=== PATIENT | male | born 1965 | race Caucasian/White ===

== ENCOUNTER 2019-12-18 19:12 | Emergency (ER) | payer OTHER, SELFPAY ==
--- NOTE | ~2019-12-18 | XR_ITS ---
EXAMINATION: XR ankle RT min 3V, XR tibia fibula RT 2V EXAM DATE: 12/18/2019 19:45 (accession [id number]), 12/18/2019 19:46 (accession [id number]) INDICATION: Initial encounter following injury, with pain of the right ankle, tibia/fibula. TECHNIQUE: Right ankle frontal, lateral and oblique projections obtained and reviewed. Frontal and l ateral projections right tibia and fibula. There are no prior studies for comparison. FINDINGS: There is acute closed posttraumatic oblique fracture through the proximal 3rd of the right fibular shaft, with about 3 mm displacement, no angulation. There is overlying soft tissue swelling. The tibia is unremarkable. The ankle mortise appears intact. IMPRESSION: Acute right fibular proximal diaphyseal fracture. Reviewed, dictated and finalized at location A. IMPRESSION: Acute right fibular proximal diaphyseal fracture.
[2019-12-18 19:15] VITALS: BP 162/100; PULSE 116; RESP 20; TEMP 37.8; O2SAT 96
--- NOTE | 2019-12-18 19:17 | ED.LOWEXIN ---
HPI - Extremity Injury (Lower) General Chief Complaint: Extremity Injury, Lower Stated Complaint: right ankle injured Time Seen by Provider: 12/18/19 19:17 Source: patient and RN notes reviewed History of Present Illness HPI Narrative: Patient is a 54-year-old male who presents the urgent care with complaints of right ankle pain and swelling. Patient states that the pain shoots up the right leg with any weightbearing pressure. Patient did ambulate into the facility with the use of crutches. States it happened approximately 2 hours ago when he was picking up his yard and flip-flops. Patient has not done anything for his pain prior to arrival. No other acute complaints or injuries. No acute distress noted. Patient aware of the plan of care. Related Data Allergies Allergy/AdvReac Type Severity Reaction Status Date / Time prednisone AdvReac Unknown Itching Verified 12/18/19 19:25 Review of Systems Review of Systems: Narrative: CONSTITUTIONAL: Denies fever, chills, or sweats. EYES: Denies visual changes, redness, or discharge. ENT: Denies rhinorrhea, congestion, sore throat, or otalgia. CARDIOVASCULAR: Denies chest pain, palpitations, or edema. RESPIRATORY: Denies cough or dyspnea. GASTROINTESTINAL: Denies abdominal pain, nausea, vomiting, or diarrhea. GENITOURINARY: Denies dysuria or hematuria. SKIN: Denies rash or itching. MUSCULOSKELETAL: Reports of right ankle pain and swelling NEUROLOGIC: Denies headache, numbness, or weakness. All other systems reviewed are negative, except as documented in HPI. PMFSH Comments At the time of my signature, I reviewed and agree with the nursing past medical, surgical, social, and family history. There is no relevant family history pertinent to the patient complaint. Exam Narrative: Exam Narrative: GENERAL: This is a well-nourished, well-developed patient, in no apparent distress. HEAD: normocephalic, atraumatic. EYES: PERRL. Sclera clear/white. Vision is grossly intact. EARS: External ears normal NOSE: External nose normal with no obvious nasal discharge, nares without redness, no rhinorrhea. THROAT: Mucous membranes moist NECK: Neck supple SKIN: warm, intact with no suspicious lesions or rash, good texture and turgor. NEURO: awake, alert, and oriented to person, place and time. There were no obvious focal neurologic abnormalities. EXTREMITIES: Positive strong right pedal pulse with capillary refill less than 2 seconds. Notable edema and ecchymosis noted to the lateral aspect of the right malleolus with pain and tenderness. Range of motion not tested due to pain. Exacerbated pain, which radiates to the right lower leg, when weightbearing. Course Vital Signs Vital signs: Vital Signs Temperature 100.0 F H 12/18/19 19:15 Pulse Rate 116 H 12/18/19 19:15 Respiratory Rate 12/18/19 19:15 Blood Pressure 162/100 H 12/18/19 19:15 Pulse Oximetry 96 12/18/19 19:15 Temperature 100.0 F H 12/18/19 19:15 Pulse Rate 116 H 12/18/19 19:15 Respiratory Rate 12/18/19 19:15 Blood Pressure 162/100 H 12/18/19 19:15 Pulse Oximetry 96 12/18/19 19:15 Reviewed-patient is informed that they may have pre-hypertension or hypertension based on a blood pressure reading in the department. I recommend the patient call the primary care provider listed on their discharge instructions or a physician of their choice this week to arrange follow-up for further evaluation of possible pre-hypertension or hypertension. Procedures Orthopedic Splinting/Casting Injury #1: Side: right Lower Extremity Injury Location: lower leg OCL: long leg Pre-Procedure Neuro Vascular Exam: normal Post-Procedure Neuro Vascular Exam: normal Additional Comments: Posterior long leg applied to the right lower extremity for fibular fracture. Patient tolerated well. Procedure successful. Pre-and post neurovascular exam within normal limits. Splint placed by adelfo/RN. Patient
== END 2019-12-18 20:15 | disposition home or self-care (01) ==
PROVIDERS: Emergency Provider Nurse Practitioner Family
DX: S93.401A Sprain of unspecified ligament of right ankle, initial encounter (principal); X58.XXXA Exposure to other specified factors, initial encounter; S82.831A Other fracture of upper and lower end of right fibula, initial encounter for closed fracture
CPT/HCPCS: 29505; 73590; 73610; 99214; G0463

== ENCOUNTER 2023-10-20 08:16 | Emergency (ER) | payer OTHER, SELFPAY ==
[2023-10-20 08:23] VITALS: BP 120/77; PULSE 78; RESP 16; TEMP 37.7; O2SAT 97
--- NOTE | 2023-10-20 08:29 | ED.MALEGU ---
HPI - Male Genitourinary General Chief complaint: Urogenital-Male Stated complaint: Urinary Problem/Back Pain Time Seen by Provider: 10/20/23 08:29 Source: patient Mode of arrival: ambulatory Limitations: no limitations History of Present Illness HPI Narrative: 58-year-old male presents with complaint burning urination, back pain, fatigue for 4 days. Patient reports takes him longer than usual to start urine stream. Afebrile. Patient reports chills last night. All systems reviewed and negative except as noted above. Related Data Home Medications Medication Instructions Recorded Confirmed amlodipine 5 mg tablet mg 10/20/23 Allergies Allergy/AdvReac Type Severity Reaction Status Date / Time prednisone AdvReac Unknown Itching Verified 12/18/19 19:25 Review of Systems Review of Systems: CONSTITUTIONAL: Denies fever, chills, or sweats. EYES: Denies visual changes, redness, or discharge. ENT: Denies rhinorrhea, congestion, sore throat, or otalgia. CARDIOVASCULAR: Denies chest pain, palpitations, or edema. RESPIRATORY: Denies cough or dyspnea. GASTROINTESTINAL: Denies abdominal pain, nausea, vomiting, or diarrhea. GENITOURINARY: Reports dysuria, low back pain. Denies hematuria. SKIN: Denies rash or itching. MUSCULOSKELETAL: Denies back pain, joint pain, or myalgia. NEUROLOGIC: Denies headache, numbness, or weakness. PSYCHIATRIC: Denies anxiety or depression. All other systems reviewed are negative, except as documented in HPI. PMFSH Comments At time of signature, agree with nursing past medical, surgical, social and family history. There is no relevant family history pertinent to the presenting complaint. Exam Narrative: GENERAL: This is a well-nourished, well-developed patient, in no apparent distress. HEAD: normocephalic, atraumatic. EYES: PERRL. Sclera clear/white. Vision is grossly intact. EARS: External ears normal NOSE: External nose normal NECK: Neck supple, non-tender without lymphadenopathy, masses or thyromegaly. CARDIOVASCULAR: Regular rate and rhythm without murmurs, gallops, or rubs. RESPIRATORY: Clear to auscultation. Breath sounds equal bilaterally. No wheezes, rales, or rhonchi. SKIN: warm, Dry, intact with no suspicious lesions or rash, good texture and turgor. NEURO: awake, alert, and oriented to person, place and time. There were no obvious focal neurologic abnormalities. EXTREMITIES: No joint tenderness, effusion, or edema noted. Course Course Level of Care: Express Care Visit Vital Signs Vital signs: Vital Signs Temperature 37.7 C H 10/20/23 08:23 Pulse Rate 78 10/20/23 08:23 Respiratory Rate 16 10/20/23 08:23 Blood Pressure 120/77 10/20/23 08:23 Pulse Oximetry 97 10/20/23 08:23 Oxygen Delivery Room Air 10/20/23 08:23 Temperature 37.7 C H 10/20/23 08:23 Pulse Rate 78 10/20/23 08:23 Respiratory Rate 16 10/20/23 08:23 Blood Pressure 120/77 10/20/23 08:23 Pulse Oximetry 97 10/20/23 08:23 Oxygen Delivery Room Air 10/20/23 08:23 Reviewed MDM - Male Genitourinary MDM Narrative Medical decision making narrative: Urinalysis positive blood, leukocytes Will treat with antibiotic due to urinalysis results and patient's symptoms. Patient nontoxic. Patient is aware of diagnosis, understands and agrees to treatment plan. Anticipatory guidance given. Patient agrees to follow-up as directed and is aware of reasons to seek care at the emergency department. Portions of this record may have been created with voice recognition software Differential Diagnosis Differential diagnosis: Likely urinary tract infection, urethritis and epididymitis Lab Data Labs: Lab Results 10/20/23 Range/Units 08:34 POC Urine Color Joanna POC Urine Clarity Clear POC Urine pH 6.0 POC Ur Specif Lyons 1.025 POC Urine Protein Trace POC Ur Glucose (UA) Negative POC Urine Ketones Trace POC Urine Blood 1+ POC Urine Nitri
[2023-10-20 08:37] LABS: EDUAAPPEAR Clear; EDUABILI Negative; EDUABLOOD 1+; EDUACOLOR1 Amber; EDUAGLUCOSE Negative; EDUAKETONE Trace; EDUALEUKO 1+; EDUANITRATE Negative; EDUAPROTEIN Trace; EDUASPGRAVITY 1.025; EDUAUROBILI 0.2
== END 2023-10-20 08:58 | disposition home or self-care (01) ==
PROVIDERS: Emergency Provider Nurse Practitioner Family
DX: N39.0 Urinary tract infection, site not specified (principal); B96.20 Unspecified Escherichia coli [E. coli] as the cause of diseases classified elsewhere; I10 Essential (primary) hypertension
CPT/HCPCS: 81003; 87077; 87086; 87186; 99213; G0463

== ENCOUNTER 2023-12-01 04:13 | Emergency (ER) | payer OTHER, SELFPAY ==
--- NOTE | ~2023-12-01 | US_ITS ---
EXAMINATION: US scrotum doppler DATE: 12/01/2023 06:26 INDICATION: Right testicular pain. TECHNIQUE: Grayscale and Doppler ultrasound images of the testes were obtained. COMPARISON: None. FINDINGS: The right testis measures 4.0 x 2.1 x 2.9 cm. The left testis measures 4.2 x 1.9 x 2.8 cm. There is normal vascular flow to both testes. The right epididymis demonstrates increased vascular fl ow, consistent with epididymitis. The left epididymis demonstrates a 4 mm cyst. There are small bilat eral hydroceles. IMPRESSION: 1. Right-sided epididymitis. 2. Small bilateral hydroceles. Reviewed, dictated and finalized at location A.
--- NOTE | ~2023-12-01 | CT_ITS ---
EXAMINATION: CT abdomen pelvis wo con DATE: 12/01/2023 05:15 INDICATION: Right testicular pain. Right lower quadrant abdominal pain. TECHNIQUE: Computed tomography (CT) of the abdomen and pelvis was performed without intravenous contr ast. Automated exposure control and iterative reconstruction technique were employed. The dose-length product was 384.70 mGy-cm. COMPARISON: None. FINDINGS: The visualized portions of the lung bases are clear without pneumonia or pleural effusion. The heart size is normal. No pericardial effusion. The liver, gallbladder, spleen, pancreas, adrenal glands, and kidneys are normal. There is no urolithiasis. There is diverticulosis of the colon withou t evidence of diverticulitis. The appendix is normal. There are no dilated loops of bowel. Aortic ath erosclerosis is noted. There are no pathologically enlarged lymph nodes. There is no free intraperito ruma fluid. There are changes of anterior and posterior fusion at L5-S1. There is mild lumbar spondyl osis. IMPRESSION: 1. No urolithiasis. Reviewed, dictated and finalized at location A. IMPRESSION: 1. No urolithiasis.
[2023-12-01 04:20] VITALS: BP 104/86; PULSE 79; RESP 17; TEMP 36.7; O2SAT 98
[2023-12-01 04:51] VITALS: BP 130/79; PULSE 69; RESP 16; TEMP 37.1; O2SAT 98
--- NOTE | 2023-12-01 04:53 | ED.GENADULT ---
HPI - General Adult General Chief complaint: Urogenital-Male History of Present Illness HPI narrative: patient is a 58-year-old gentleman who presents emergency department chief complaint of right testicle pain and right lower quadrant pain. Patient reports that he has had a low-grade temperature reports that he has had some urinary frequency and was recently treated for a urinary infection patient states that he has no prior history of STIs reports that he has pain in the right testicle of reports that it is also swollen patient reports he also having pain in the right lower quadrant. The patient reports that he still has his appendix and still has his gallbladder Related Data Home Medications Medication Instructions Recorded Confirmed amlodipine 5 mg tablet mg 10/20/23 Allergies Allergy/AdvReac Type Severity Reaction Status Date / Time prednisone AdvReac Unknown Itching Verified 12/18/19 19:25 Review of Systems Review of Systems: A 10 system review of systems was completed on the patient and is negative except for what is stated in the HPI. Nursing and ancillary documentation was reviewed. Exam Narrative: GENERAL: Well-appearing, well-nourished, and in no acute distress. HEAD: Normocephalic, atraumatic. EYES: PERRLA and EOMI. ENT: Nares clear, no rhinorrhea or epistaxis. Mucous membranes moist. NECK: Supple. CHEST: Clear to auscultation. No respiratory distress. HEART: Regular rate and rhythm. No murmur heard. Normal peripheral pulses. ABDOMEN: Soft, mild tenderness palpation the right lower quadrant, nondistended, normal active bowel sounds. : Tenderness to palpation in the right testicle no crepitance, no necrotic tissue no subcu emphysema EXTREMITIES: Normal range of motion. No edema. SKIN: Warm, dry, no rash. NEURO: No focal deficits. Alert and oriented x3. PSYCH: Normal mood and affect. Course Vital Signs Vital signs: Vital Signs Temperature 36.7 C 12/01/23 04:20 Pulse Rate 79 12/01/23 04:20 Respiratory Rate 17 12/01/23 04:20 Blood Pressure 104/86 12/01/23 04:20 Pulse Oximetry 98 12/01/23 04:20 Oxygen Delivery Room Air 12/01/23 04:20 Temperature 37.0 C 12/01/23 06:18 Pulse Rate 65 12/01/23 06:18 Respiratory Rate 16 12/01/23 06:18 Blood Pressure 106/63 12/01/23 06:18 Pulse Oximetry 100 12/01/23 06:18 Oxygen Delivery Room Air 12/01/23 04:20 Medical Decision Making MDM Narrative Medical decision making narrative: differential diagnosis includes UTI, STI, epididymitis, orchitis, testicular torsion, ureterolithiasis laboratory studies were obtained which showed a white count of 11.2 electrolytes showed no acute abnormalities urinalysis showed 11-20 white blood cells ultrasound showed no evidence of torsion and right-sided epididymitis CT scan of the abdomen pelvis showed no evidence of obstructing stone or acute intra-abdominal abnormality Vital Signs Vital Signs: Vital Signs Temperature 36.7 C 12/01/23 04:20 Pulse Rate 79 12/01/23 04:20 Respiratory Rate 17 12/01/23 04:20 Blood Pressure 104/86 12/01/23 04:20 Pulse Oximetry 98 12/01/23 04:20 Oxygen Delivery Room Air 12/01/23 04:20 Temperature 37.0 C 12/01/23 06:18 Pulse Rate 65 12/01/23 06:18 Respiratory Rate 16 12/01/23 06:18 Blood Pressure 106/63 12/01/23 06:18 Pulse Oximetry 100 12/01/23 06:18 Oxygen Delivery Room Air 12/01/23 04:20 Lab Data 12/01/23 05:00 12/01/23 05:00 Labs: Lab Results 12/01/23 Range/Units 05:00 WBC 11.2 H (4.5-10.0) K/mm3 RBC 4.01 L (4.6-6.20) M/mm3 Hgb 12.7 L (14.0-18.0) g/dL Hct 37.6 L (42.0-52.0) % MCV 93.8 (80-100) fl MCH 31.7 (26-34) pg MCHC 33.8 (32-36) g/dl RDW 13.0 (11.5-14.5) % Plt Count 261 (150-375) k/mm3 MPV 9.7 (7.4-10.4) fl Immature Gran % (Auto) 0.3 (0-0.5) % Neut % (Auto) 76.0 H (45.5-73.1) % Lymph %
[2023-12-01] MEDS: SODIUM CHLORIDE 0.9% IV 1,000 ML 999 ML IV CONT (05:00)
[2023-12-01] MEDS: ONDANSETRON INJ 4 MG/2 ML VIAL IV PUSH (05:00)
[2023-12-01] MEDS: MORPHINE SULFATE (*CRX) 4 MG/ML INJ IV PUSH (05:00)
[2023-12-01 05:14] LABS: Basophils Percent Auto 0.4 % (0.2-1.2); Eosinophils Absolute Auto 0.1 K/mm3 (0-0.3); Eosinophils Percent Auto 0.4 % (0-4.4); Hematocrit 37.6 % (42.0-52.0); Hemoglobin 12.7 g/dL (14.0-18.0); Immature Granulocyte Absolute 0.03 K/mm3 (0.00-0.031); Immature Granulocyte Percent A 0.3 % (0-0.5); Lymphocytes Absolute Auto 1.68 K/mm3 (0.9-3.2); Mean Corpuscular HGB Conc 33.8 g/dl (32-36); Mean Corpuscular Hemoglobin 31.7 pg (26-34); Mean Corpuscular Volume 93.8 fl (80-100); Mean Platelet Volume 9.7 fl (7.4-10.4); Monocytes Absolute Auto 0.9 K/mm3 (0.1-0.6); Monocytes Percent Auto 7.9 % (2.6-8.5); Neutrophils Absolute Auto 8.5 K/mm3 (1.3-6.7); Platelet Count Result 261 k/mm3 (150-375); Red Blood Count 4.01 M/mm3 (4.6-6.20); White Blood Count 11.2 K/mm3 (4.5-10.0)
[2023-12-01 05:20] LABS: Add Urine Microscopic? YES; Appearance Urine Clear (Clear); Bacteria Urine None Seen /hpf; Bilirubin Urine Negative (Negative); Blood Urine Negative (Negative); Color Urine Yellow (Yellow); Glucose Urine UA Negative (Negative); Ketones Urine Negative (Negative); Leukocyte Esterase Ur 1+ LEU/UL (Negative); Nitrate Urine Negative (Negative); Non Pathogenic Casts 0-2; Protein Urine Negative (Negative); RBC Urine 0-2 /hpf (0-2); Specific Grav Ur 1.018 (1.001-1.035); Squamous Epithelial Cell Urine None Seen /hpf (Few); Urobilinogen Urine 0.2 mg/dL (<2.0)
[2023-12-01 05:25] LABS: Alanine Aminotransferase 20 U/L (6-50); Albumin Level 4.1 g/dL (3.5-5.1); Alkaline Phosphatase 82 U/L (38-126); Anion Gap 9 mmol/L (4-12); Aspartate Amino Transferase 27 U/L (17-59); Bilirubin,Total 0.4 mg/dL (0.2-1.3); Blood Urea Nitrogen 16 mg/dL (9-20); Calcium 8.5 mg/dL (8.4-10.2); Carbon Dioxide 23 mmol/L (22-30); Chloride 106 mmol/L (98-107); Estimated CRCL calculation 83 ml/min; Estimated Glomerular Filt Rate > 60; Glucose 114 mg/dL (65-110); Lipase 176 U/L (23-300); Potassium 4.1 mmol/L (3.4-5.0); Sodium 138 mmol/L (137-145)
[2023-12-01 06:18] VITALS: BP 106/63; PULSE 65; RESP 16; TEMP 37; O2SAT 100
[2023-12-01] MEDS: DOXYCYCLINE HYCLATE 100 MG TABLET PO (07:03)
[2023-12-01] MEDS: cefTRIAXone 1 GM VIAL IM (07:04)
[2023-12-01 08:53] LABS: Chlamydia trachomatis NOT DETECTED (NOT DETECTE); Neisseria gonorrhoeae PCR NOT DETECTED (NOT DETECTE)
== END 2023-12-01 07:09 | disposition home or self-care (01) ==
PROVIDERS: Emergency Provider Emergency Medicine
DX: N45.1 Epididymitis (principal); N39.0 Urinary tract infection, site not specified; Z11.3 Encounter for screening for infections with a predominantly sexual mode of transmission
CPT/HCPCS: 36415; 74176; 76870; 80053; 81001; 83690; 85025; 87077; 87086; 87088; 87186; 87491; 87591; 93976; 96361; 96372; 96374; 96375; 99284; A9270; J0696; J2270; J2405; J7030